=== PATIENT | male | born 1995 | race Caucasian/White ===

== ENCOUNTER 2022-01-14 08:24 | Emergency (ER) | payer BC ==
[~2022-01-14] VITALS: Ht 185.4 cm; Wt 79.4 kg
[2022-01-14 08:30] VITALS: BP_SYST 134
--- NOTE | 2022-01-14 08:36 | NUR ---
Pt coming from home ambulatory with steadt gait accompanied by significant other. Pt c/o bilateral flank pain, fever, body aches, and nausea that started this morning. No vomiting. No chest pain and no sob. No diarrhea or constipation. LBM last night. NKA. No known medical conditions. A&Ox4. Skin intact. No surgeries. VSS. No fever at this time. Bed in lowest position.
--- NOTE | 2022-01-14 09:00 | NUR ---
Patient to ER bed 05 to gown for evaluation. Side rails up. Report given to Tameka VILLA
--- NOTE | 2022-01-14 09:09 | NUR ---
ASSUMED PATIENT CARE AAOX4 AMBULATORY TO ER BED 5, C/O LEFT FLANK PAIN STARTED AT 5 AM RADIATING TO RIGHT FLANK, ASSOCIATED WITH HX OF KIDNEY STONE, AWAITING FOR EDP FOR INITIAL ASSESSMENT.
[2022-01-14] MEDS ORDERED: NACL 0.9% 1,000 ML IV ONE ×2 (09:45)
[2022-01-14] MEDS ORDERED: NACL 0.9% 2,000 ML IV ONE (09:45)
[2022-01-14] MEDS ORDERED: ONDANSETRON HCL 4 MG/2 ML VIAL IVP ONE (09:45)
[2022-01-14] MEDS ORDERED: KETOROLAC TROMETHAMINE 30 MG VIAL IVP ONE (09:45)
[2022-01-14] MEDS ORDERED: MORPHINE 4 MG INJ. 4 MG/ML VIAL IVP ONE (10:00)
--- NOTE | 2022-01-14 10:00 | NUR ---
MAYO Morley at bedside examining patient.
[2022-01-14 10:05] LABS: BASOPHILS % (AUTO) 0.4 % (0.0-2.0); EOSINOPHILS # (AUTO) 0.2 K/uL (0.0-0.4); EOSINOPHILS % (AUTO) 1.6 % (0.0-4.0); HEMATOCRIT 43.8 % (36-54); HEMOGLOBIN 14.7 g/dL (14.0-18.0); LYMPHOCYTES # (AUTO) 1.4 K/uL (1.0-5.5); MEAN CORPUSCULAR HEMOGLOBIN 29 pg (27-31); MEAN CORPUSCULAR HGB CONC 34 % (32-36); MEAN CORPUSCULAR VOLUME 87 fL (79.0-98.0); MONOCYTES # (AUTO) 1.4 K/uL (0.0-1.0); MONOCYTES % (AUTO) 12.6 % (1.7-9.3); NEUTROPHILS # (AUTO) 8.4 K/uL (1.8-7.7); NEUTROPHILS % (AUTO) 73.4 % (40.0-70.0); PLATELET COUNT (AUTO) 144 K/uL (130-430); RED BLOOD CELL COUNT(AUTO) 5.04 MIL/uL (4.2-6.2); RED CELL DISTRIBUTION WIDTH 12.9 % (9.0-15.0); WHITE BLOOD COUNT (AUTO) 11.4 K/uL (4.8-10.8)
[2022-01-14 10:16] LABS: CALCIUM 9.2 mg/dL (8.4-11.0); CREATININE 1.6 mg/dL (0.55-1.30); POTASSIUM 4.1 mmol/L (3.5-5.1)
[2022-01-14 10:21] LABS: ALBUMIN 3.5 g/dL (3.4-4.8); TOTAL BILIRUBIN 0.3 mg/dL (0.0-1.0)
[2022-01-14 11:13] LABS: BILIRUBIN,URINE NEGATIVE (NEGATIVE); BLOOD, URINE 2+ (NEGATIVE); COLOR,URINE YELLOW (YELLOW); GLUCOSE,URINE NEGATIVE (NEGATIVE); KETONES,URINE NEGATIVE (NEGATIVE); LEUKOCYTE ESTERASE ,URINE NEGATIVE (NEGATIVE); NITRITE, URINE NEGATIVE (NEGATIVE); PROTEIN URINE NEGATIVE (NEGATIVE); UROBILINOGEN,URINE 0.2 (0.2-1.0)
[2022-01-14 11:14] LABS: CLARITY/URINE SLIGHTLY HAZY (CLEAR)
[2022-01-14] MEDS ORDERED: HYDROmorphone 1 MG/ML INJ. CARTRIDGE IVP ONE (11:15)
[2022-01-14 11:35] LABS: BACTERIA,URINE RARE /HPF (None Seen); WBC,URINE 0-3 /HPF (0-3)
[2022-01-14] MEDS ORDERED: cefTRIAXone 1 GM in D5W 50 ML IV ONE (12:15)
[2022-01-14] MEDS ORDERED: cefTRIAXone 1 GM VIAL ONE (12:41)
[2022-01-14 13:14] LABS: CALCIUM 8.1 mg/dL (8.4-11.0); CREATININE 1.32 mg/dL (0.55-1.30); POTASSIUM 3.9 mmol/L (3.5-5.1)
[2022-01-14] MEDS ORDERED: CEFU250T85 PO (14:43)
[2022-01-14] MEDS ORDERED: HYDR-3921 PO (14:43)
--- NOTE | 2022-01-14 15:15 | NUR ---
ALL RESULT BACK, EDP REASSESS PATIENT AND D/XC HOPME WITH INSTRUCTION, PATIENT VERBALIZES UNDERSTANDING AND LEFT ER IN GOOD STABLE, AAOX4 CONDITION.
[2022-01-14 15:16] VITALS: BP_SYST 117
--- NOTE | 2022-01-14 15:21 | NUR ---
Patient given written and verbal discharge instructions and verbalizes understanding. ER MD discussed with patient the results and treatment provided. Patient in stable condition. ID arm band removed. IV catheter removed intact and dressing applied, no active bleeding. Rx of NORCO AND CEFTIN given. Patient educated on pain management and to follow up with PMD. Pain Scale . Opportunity for questions provided and answered. Medication side effect fact sheet provided.
== END 2022-01-14 15:18 | disposition home or self-care (01) ==
LOC: SED 08:24
DX: J10.1 Influenza due to other identified influenza virus with other respiratory manifestations (principal); N17.9 Acute kidney failure, unspecified; R10.9 Unspecified abdominal pain; R50.9 Fever, unspecified; R11.0 Nausea; Z79.899 Other long term (current) drug therapy; Z20.822 Contact with and (suspected) exposure to COVID-19
CPT/HCPCS: 99284; 74176; 96365; 96375; 96361; 87426; 80053; 81000; 82550; 85025; 86308; 87040; 36415; 76376; 83605; 87804 ×2; 80048; U0003; J0696; J1885; J2405; J1170; J2270; C9803

== ENCOUNTER 2022-09-04 08:03 | Emergency (ER) | payer BC ==
[~2022-09-04] VITALS: Ht 182.9 cm; Wt 77.1 kg
[~2022-09-04 08:03] MED LIST: CEFU250T85 PO; HYDR-3917 PO; HYDR-3921 PO; NAPR-686 PO
--- NOTE | 2022-09-04 08:09 | NUR ---
Placed in room 04 . Placed on ekg monitor, blood pressure machine and pulse oximeter. To gown for exam. Side rails up. Report given to ALLEN RIVERA.
--- NOTE | 2022-09-04 08:10 | NUR ---
DR. TODD AT [facility] TO ASSESS PT.
[2022-09-04 08:11] VITALS: BP_SYST 133
[2022-09-04] MEDS ORDERED: NACL 0.9% 1,000 ML IV ONE (08:15)
[2022-09-04] MEDS ORDERED: KETOROLAC TROMETHAMINE 30 MG VIAL IVP ONE (08:15)
--- NOTE | 2022-09-04 08:25 | NUR ---
# 20 gauge angiocath placed to LH. Use of asceptic technique. Opsite placed over site. Blood return noted. Blood for lab drawn from site. Flushed with 10 cc of normal saline. No evidence of infiltration noted. Patient tolerated well.
[2022-09-04 08:50] LABS: BASOPHILS % (AUTO) 0.4 % (0.0-2.0); EOSINOPHILS # (AUTO) 0.4 K/uL (0.0-0.4); EOSINOPHILS % (AUTO) 6.5 % (0.0-4.0); HEMATOCRIT 42.5 % (36-54); HEMOGLOBIN 14.2 g/dL (14.0-18.0); LYMPHOCYTES % (AUTO) 30.9 % (20.5-51.5); MEAN CORPUSCULAR HEMOGLOBIN 30 pg (27-31); MEAN CORPUSCULAR HGB CONC 33 % (32-36); MEAN CORPUSCULAR VOLUME 89 fL (79.0-98.0); MONOCYTES # (AUTO) 0.5 K/uL (0.0-1.0); MONOCYTES % (AUTO) 8.4 % (1.7-9.3); NEUTROPHILS # (AUTO) 3.4 K/uL (1.8-7.7); NEUTROPHILS % (AUTO) 53.8 % (40.0-70.0); PLATELET COUNT (AUTO) 170 K/uL (130-430); RED BLOOD CELL COUNT(AUTO) 4.78 MIL/uL (4.2-6.2); RED CELL DISTRIBUTION WIDTH 12.9 % (9.0-15.0); WHITE BLOOD COUNT (AUTO) 6.4 K/uL (4.8-10.8)
--- NOTE | 2022-09-04 08:51 | NUR ---
TORADOL IVP GIVEN, NS 1000ML BOLUS INITIATED, PT TAKEN TO CT SCAN AT THIS TIME.
[2022-09-04 09:02] LABS: CALCIUM 8.1 mg/dL (8.4-11.0)
[2022-09-04 09:07] LABS: ALBUMIN 3.6 g/dL (3.4-4.8); TOTAL BILIRUBIN 0.2 mg/dL (0.0-1.0)
--- NOTE | 2022-09-04 09:25 | NUR ---
MORPHINE 4MG IVP GIVEN FOR PAIN 12/19 TO ABDOMEN.
[2022-09-04] MEDS ORDERED: MORPHINE 4 MG INJ. 4 MG/ML VIAL IVP ONE ×3 (09:30→11:15)
[2022-09-04 10:25] LABS: BILIRUBIN,URINE NEGATIVE (NEGATIVE); BLOOD, URINE NEGATIVE (NEGATIVE); CLARITY/URINE CLEAR (CLEAR); COLOR,URINE YELLOW (YELLOW); GLUCOSE,URINE NEGATIVE (NEGATIVE); KETONES,URINE NEGATIVE (NEGATIVE); LEUKOCYTE ESTERASE ,URINE NEGATIVE (NEGATIVE); NITRITE, URINE NEGATIVE (NEGATIVE); PROTEIN URINE NEGATIVE (NEGATIVE); UROBILINOGEN,URINE 0.2 (0.2-1.0)
[2022-09-04] MEDS ORDERED: NAPR-1172 PO (11:00)
--- NOTE | 2022-09-04 12:00 | NUR ---
DR. TODD AT BEDSIDE TO DISCUSS POC.
--- NOTE | 2022-09-04 12:26 | NUR ---
MORPHINE 4MG IVP GIVEN FOR ABDOMINAL PAIN 12/19.
[2022-09-04 12:57] VITALS: BP_SYST 128
--- NOTE | 2022-09-04 12:59 | NUR ---
Patient given written and verbal discharge instructions and verbalizes understanding. ER MD discussed with patient the results and treatment provided. Patient in stable condition. ID arm band removed. IV catheter removed intact and dressing applied, no active bleeding. Rx of NAPROXEN given. Patient educated on pain management and to follow up with PMD. Pain Scale 2/10. Opportunity for questions provided and answered. Medication side effect fact sheet provided.
== END 2022-09-04 12:59 | disposition home or self-care (01) ==
LOC: SED 08:03
DX: R10.9 Unspecified abdominal pain (principal); Z87.442 Personal history of urinary calculi; Z79.899 Other long term (current) drug therapy
CPT/HCPCS: 99285; 74176; 96374; 96361; 96375; 80053; 85025; 36415; 76376; 96376; 81003; J1885; J2270; J7030